=== PATIENT | male | born 1990 | race African-American/Black ===

== ENCOUNTER → 2017-03-21 | Outpatient (CLI) | payer SELFPAY | LOC: M OUTALCOH 13:51 | PROVIDERS: ATTEND Psychiatry & Neurology Psychiatry | DX: F10.20 Alcohol dependence, uncomplicated (principal) ==

== ENCOUNTER 2017-03-30 15:54 | Outpatient (RCR) | payer OTHER, SELFPAY | END 2017-03-31 | LOC: M OUTALCOH 15:54 | PROVIDERS: ATTEND Psychiatry & Neurology Psychiatry | DX: F10.20 Alcohol dependence, uncomplicated (principal); F17.200 Nicotine dependence, unspecified, uncomplicated ==

== ENCOUNTER 2017-04-05 16:00 | Outpatient (RCR) | payer SELFPAY | END 2017-05-01 | LOC: M OUTALCOH 04-06 15:00 | DX: F10.20 Alcohol dependence, uncomplicated (principal); F17.200 Nicotine dependence, unspecified, uncomplicated ==

== ENCOUNTER 2017-05-05 15:45 | Outpatient (RCR) | payer OTHER, SELFPAY | END 2017-06-01 | LOC: M OUTALCOH 15:45 | DX: F10.20 Alcohol dependence, uncomplicated (principal); F17.200 Nicotine dependence, unspecified, uncomplicated ==

== ENCOUNTER 2017-07-21 08:06 | Emergency (ER) | payer OTHER ==
[2017-07-21] MEDS: ONDANSETRON 4MG/2ML VIAL (J2405) IV (09:09)
[2017-07-21] MEDS: MORPHINE 2 MG/ML 1ML SYRINGE (J2270) IV ×4 (09:09→12:32)
[2017-07-21] MEDS: NS 1,000 ML IV (09:09)
[2017-07-21 09:19] LABS: BASO % 0.4 % (0.0-1.0); EOS % 0.1 % (0.0-3.0); HEMATOCRIT 35.8 % (42.0-52.0); HEMOGLOBIN 12.3 g/dl (14.0-18.0); IMMATURE GRANULOCYTE % 0.4 % (0-3.0); LYMPH # 1.5 10^3/uL (1.5-6.5); LYMPH % 14.3 % (24.0-44.0); MEAN CORPUSCULAR HEMOGLOBIN 31.9 pg (27.0-33.0); MEAN CORPUSCULAR HGB CONC 34.4 g/dl (32.0-36.5); MONO # 0.9 10^3/uL (0.0-0.8); MONO % 8.3 % (0.0-5.0); NEUTROPHILS # 8.2 10^3/uL (1.8-7.7); NEUTROPHILS % 76.5 % (36.0-66.0); PLATELET COUNT, AUTOMATED 198 10^3/uL (150-450); RED BLOOD COUNT 3.85 10^6/uL (4.30-6.10); RED CELL DISTRIBUTION WIDTH 13.5 % (11.5-14.5); WHITE BLOOD COUNT 10.8 10^3/uL (4.0-10.0)
[2017-07-21] MEDS: CLINDAMYCIN 900 MG in APPROPRIATE DILUENT 1 EA IV (09:25)
[2017-07-21 09:35] LABS: ALBUMIN 3.2 GM/DL (3.2-5.2); ALBUMIN/GLOBULIN RATIO 0.62 (1.00-1.93); ALKALINE PHOSPHATASE 91 U/L (45-117); ALT/SGPT 37 U/L (12-78); ANION GAP 10 MEQ/L (8-16); AST/SGOT 46 U/L (7-37); BILIRUBIN,DIRECT 0.2 MG/DL (0.0-0.2); BILIRUBIN,TOTAL 0.6 MG/DL (0.2-1.0); BLOOD UREA NITROGEN 6 MG/DL (7-18); CALCIUM LEVEL 8.7 MG/DL (8.5-10.1); CARBON DIOXIDE LEVEL 24 MEQ/L (21-32); CHLORIDE LEVEL 104 MEQ/L (98-107); CREATININE FOR GFR 0.87 MG/DL (0.70-1.30); GLOMERULAR FILTRATION RATE > 60.0 (>60); GLUCOSE, FASTING 79 MG/DL (70-100); POTASSIUM SERUM 4.2 MEQ/L (3.5-5.1); SODIUM LEVEL 138 MEQ/L (136-145); TOTAL PROTEIN 8.4 GM/DL (6.4-8.2)
[2017-07-21] MEDS ORDERED: ISOVUE-370 76% 100ML VIAL (Q9967) As Ordered (09:40)
[2017-07-21 09:55] LABS: LACTIC ACID SEPSIS PROTOCOL 2.3 MMOL/L (0.4-2.0)
[2017-07-21] MEDS: NICOTINE 21MG/24HR 1 EA TRANSDERMAL TD (11:15)
== END 2017-07-21 12:37 | disposition short-term general hospital (02) ==
LOC: M ED 08:06
DX: K12.2 Cellulitis and abscess of mouth (principal); M27.2 Inflammatory conditions of jaws; F17.210 Nicotine dependence, cigarettes, uncomplicated
CPT/HCPCS: J2405

== ENCOUNTER 2022-03-16 15:00 | Emergency (ER) | payer OTHER, SELFPAY ==
[~2022-03-16] VITALS: Ht 172.7 cm; Wt 54.5 kg
[2022-03-16] MEDS ORDERED: KETOROLAC 60MG 2ML VIAL IM ONE (19:40)
[2022-03-16] MEDS ORDERED: LIDOCAINE 5% (LIDODERM) PATCH TD ONE (19:40)
[2022-03-16] MEDS: diazePAM 5MG TABLET PO ONE ×2 (20:03→20:09)
[2022-03-16] MEDS ORDERED: ASPE4PAD TOP (20:58)
[2022-03-16] MEDS ORDERED: NAPR-837 PO (20:58)
[2022-03-16] MEDS ORDERED: METH-1165 PO (20:58)
[2022-03-16 21:11] VITALS: BP 108/80
== END 2022-03-16 21:13 | disposition home or self-care (01) ==
LOC: M ED 15:00
DX: M54.50 Low back pain, unspecified (principal); M54.6 Pain in thoracic spine; F17.200 Nicotine dependence, unspecified, uncomplicated; F10.10 Alcohol abuse, uncomplicated; V49.50XA Passenger injured in collision with unspecified motor vehicles in traffic accident, initial encounter; Z91.013 Allergy to seafood; Z91.018 Allergy to other foods
CPT/HCPCS: 72072; 72110; 96372; 99283; J1885

== ENCOUNTER 2022-04-22 09:04 | Inpatient (IN) | payer MEDICAID, OTHER, SELFPAY ==
[~2022-04-22] VITALS: Ht 172.7 cm; Wt 65.0 kg
[~2022-04-22 09:04] MED LIST: ASPE4PAD TOP; METH-1165 PO; NAPR-837 PO
[2022-04-22 12:00] LABS: BASO % 0.2 % (0.0-1.0); EOS % 0.2 % (0.0-3.0); LYMPH # 0.8 10^3/uL (1.5-5.0); LYMPH % 4.9 % (24.0-44.0); MEAN CORPUSCULAR HEMOGLOBIN 32.7 pg (27.0-33.0); MEAN CORPUSCULAR HGB CONC 34.4 g/dl (32.0-36.5); MEAN CORPUSCULAR VOLUME 95.1 fl (80.0-96.0); MONO % 9.9 % (2.0-8.0); NEUTROPHILS # 13.5 10^3/uL (1.5-8.5); NEUTROPHILS % 82.6 % (36.0-66.0); PLATELET COUNT, AUTOMATED 131 10^3/uL (150-450); RED BLOOD COUNT 2.05 10^6/uL (4.30-6.10); WHITE BLOOD COUNT 16.3 10^3/uL (4.0-10.0)
[2022-04-22 12:35] LABS: RSV AMPLIFICATION NEGATIVE (NEGATIVE)
[2022-04-22 12:45] LABS: HEMATOCRIT 19.5 % (42.0-52.0); HEMOGLOBIN 6.7 g/dl (13.5-17.5); MONO # 1.6 10^3/uL (0.0-0.8)
[2022-04-22] MEDS ORDERED: NS 1,580 ML in IV 1 EA IV ONE (13:00)
[2022-04-22] MEDS ORDERED: cefTRIAXone SOD 2 GM in D5W MINI-BAG PLUS 50 ML IV ONE (13:00)
[2022-04-22 13:01] LABS: ETHYL ALCOHOL (ETHANOL) 0.209 % (0.000-0.010)
[2022-04-22 13:18] LABS: INR 1.88; PROTHROMBIN TIME 21.9 SECONDS (12.5-14.5)
[2022-04-22 13:19] LABS: ACETAMINOPHEN LEVEL < 2.0 UG/ML (10.0-20.0); ALBUMIN 1.8 G/DL (3.2-5.2); ALKALINE PHOSPHATASE 162 U/L (46-116); ALT/SGPT 35 U/L (7.0-40); AST/SGOT 285 U/L (<34); BILIRUBIN,DIRECT 14.9 MG/DL (<0.4); BILIRUBIN,TOTAL 20.1 MG/DL (0.3-1.2); BLOOD UREA NITROGEN 16 MG/DL (9-23); CALCIUM LEVEL 7.9 MG/DL (8.5-10.1); CARBON DIOXIDE LEVEL 29 MMOL/L (20-31); CHLORIDE LEVEL 86 MMOL/L (98-107); CREATININE FOR GFR 1.72 MG/DL (0.70-1.30); GLOMERULAR FILTRATION RATE 59.4 (>60); GLUCOSE, FASTING 98 MG/DL (60-100); LIPASE 52 U/L (12-53); POTASSIUM SERUM 3.4 MMOL/L (3.5-5.1); SALICYLATE LEVEL < 3.0 MG/DL (<30); SODIUM LEVEL 130 MMOL/L (136-145); TOTAL PROTEIN 8.2 G/DL (5.7-8.2)
[2022-04-22 13:19] LABS: PARTIAL THROMBOPLASTIN TIME 56.7 SECONDS (24.8-34.2)
[2022-04-22 13:24] LABS: HEPATITIS B SURFACE ANTIGEN NEGATIVE (NEGATIVE)
[2022-04-22 13:36] LABS: HIV 1&2 SCREEN CENTAUR NEGATIVE (NEGATIVE)
[2022-04-22 13:44] LABS: HEPATITIS B CORE ANTIBODY IGM NEGATIVE (NEGATIVE)
[2022-04-22 13:45] LABS: HEPATITIS C VIRUS ABY INDEX 0.3 INDEX (<0.8)
[2022-04-22] MEDS ORDERED: predniSONE 20 MG TAB PO ONE (15:55)
[2022-04-22] MEDS ORDERED: HOME MED LIST COMPLETE! XX SCH (16:40)
[2022-04-22] MEDS ORDERED: PANTOPRAZOLE 40MG VIAL IV ONE (16:55)
[2022-04-22] MEDS ORDERED: OCTREOTIDE ACETATE 100MCG/ML VIAL **IV ADMINISTRATION ONLY IV ONE (16:55)
[2022-04-22] MEDS ORDERED: ISOVUE-370 76% 100ML VIAL As Ordered ONE (17:14)
[2022-04-22] MEDS ORDERED: LORazepam 2 MG TAB PO PRN (17:15)
[2022-04-22] MEDS: NS 200 ML IV SCH (18:15)
[2022-04-22] MEDS ORDERED: NS 600 ML IV ONE (18:30)
[2022-04-22 19:29] LABS: FERRITIN 1520.5 NG/ML (10.5-307.3)
[2022-04-22 19:30] LABS: FOLATE 3.01 NG/ML (>5.4)
[2022-04-22 20:14] LABS: C REACTIVE PROTEIN QUANTITATIV 3.4 MG/DL (<1.0)
[2022-04-22 20:21] LABS: PERCENT SATURATION 56.1 % (19.7-50.0)
[2022-04-22] MEDS: THIAMINE 100 MG TAB PO SCH (21:00)
[2022-04-22 22:38] VITALS: BP 102/59
[2022-04-22 22:46] LABS: MEAN CORPUSCULAR HEMOGLOBIN 33.5 pg (27.0-33.0); MEAN CORPUSCULAR HGB CONC 34.8 g/dl (32.0-36.5); MEAN CORPUSCULAR VOLUME 96.5 fl (80.0-96.0); PLATELET COUNT, AUTOMATED 131 10^3/uL (150-450); WHITE BLOOD COUNT 13.5 10^3/uL (4.0-10.0)
[2022-04-22 22:52] LABS: HEMATOCRIT 16.4 % (42.0-52.0)
[2022-04-22 22:53] LABS: HEMOGLOBIN 5.7 g/dl (13.5-17.5)
[2022-04-22 22:55] VITALS: BP 102/59
[2022-04-22 23:58] VITALS: BP 101/63
[2022-04-23] VITALS (21 sets, daily range): BP systolic 99–125; BP diastolic 53–83
[2022-04-23] MEDS: PANTOPRAZOLE 40MG VIAL IV SCH ×2 (06:05→17:47)
[2022-04-23] MEDS: NS 200 ML IV SCH (07:35)
[2022-04-23] MEDS: FOLIC ACID 1MG TAB PO SCH ×2 (09:00→09:54)
[2022-04-23] MEDS: K-PHOS NEUTRAL 250MG TABLET (SOD.PHOSPHATE/POT.PHOSPHATE) PO SCH ×5 (09:00→21:01)
[2022-04-23] MEDS: THIAMINE 100 MG TAB PO SCH ×2 (09:00→09:54)
[2022-04-23] MEDS: MULTIVITAMINS/MINERALS THERAP 1 TAB PO SCH ×2 (09:00→09:54)
[2022-04-23 09:01] LABS: BASO % 0.1 % (0.0-1.0); LYMPH # 0.6 10^3/uL (1.5-5.0); LYMPH % 4.1 % (24.0-44.0); MEAN CORPUSCULAR HEMOGLOBIN 32.9 pg (27.0-33.0); MEAN CORPUSCULAR HGB CONC 35.8 g/dl (32.0-36.5); MEAN CORPUSCULAR VOLUME 91.9 fl (80.0-96.0); MONO # 0.9 10^3/uL (0.0-0.8); MONO % 6.5 % (2.0-8.0); NEUTROPHILS # 12.6 10^3/uL (1.5-8.5); NEUTROPHILS % 87.5 % (36.0-66.0); PLATELET COUNT, AUTOMATED 121 10^3/uL (150-450); RED BLOOD COUNT 2.83 10^6/uL (4.30-6.10); WHITE BLOOD COUNT 14.5 10^3/uL (4.0-10.0)
[2022-04-23 09:17] LABS: HEMOGLOBIN 9.3 g/dl (13.5-17.5)
[2022-04-23 09:23] LABS: INR 1.83; PROTHROMBIN TIME 21.5 SECONDS (12.5-14.5)
[2022-04-23 09:27] LABS: BILIRUBIN,DIRECT 14.7 MG/DL (<0.4)
[2022-04-23 09:28] LABS: ALBUMIN 1.5 G/DL (3.2-5.2); ALBUMIN 1.7 G/DL (3.2-5.2); BILIRUBIN,TOTAL 20.4 MG/DL (0.3-1.2); CALCIUM LEVEL 7.2 MG/DL (8.5-10.1); CALCIUM LEVEL 7.4 MG/DL (8.5-10.1); CREATININE FOR GFR 1.71 MG/DL (0.70-1.30); CREATININE FOR GFR 1.75 MG/DL (0.70-1.30); GLOMERULAR FILTRATION RATE 58.2 (>60); GLOMERULAR FILTRATION RATE 59.8 (>60); PHOSPHORUS LEVEL 1.9 MG/DL (2.5-4.9); POTASSIUM SERUM 3.7 MMOL/L (3.5-5.1); POTASSIUM SERUM 3.8 MMOL/L (3.5-5.1); TOTAL PROTEIN 7.7 G/DL (5.7-8.2); TOTAL PROTEIN 7.8 G/DL (5.7-8.2)
[2022-04-23] MEDS: NICOTINE 7 MG/24 HR TRANSDERMAL TD SCH (10:22)
[2022-04-23] MEDS ORDERED: NS 500 ML IV ONE (11:40)
[2022-04-23] MEDS: OXAZEPAM 10MG CAP PO SCH ×3 (12:00→23:46)
[2022-04-23] MEDS: AMPICILLIN SOD/SULBACTAM SOD 3 GM in D5W MINI-BAG PLUS 100 ML IV SCH ×3 (12:48→23:45)
[2022-04-23] MEDS ORDERED: POTASSIUM PHOSPHATE INJ 30 MMOL in D5W 500 ML IV ONE (13:00)
[2022-04-23] MEDS ORDERED: cefTRIAXone SOD 1 GM in D5W MINI-BAG PLUS 50 ML IV SCH (13:00)
[2022-04-23 14:07] LABS: HEMOGLOBIN 9.1 g/dl (13.5-17.5); MEAN CORPUSCULAR VOLUME 91.5 fl (80.0-96.0); PLATELET COUNT, AUTOMATED 129 10^3/uL (150-450); RED BLOOD COUNT 2.84 10^6/uL (4.30-6.10); WHITE BLOOD COUNT 17.2 10^3/uL (4.0-10.0)
[2022-04-23] MEDS: THIAMINE INJection 500 MG in NS 100 ML IV SCH ×2 (16:16→22:11)
[2022-04-24] VITALS (7 sets, daily range): BP systolic 103–126; BP diastolic 60–77
[2022-04-24] MEDS: PANTOPRAZOLE 40MG VIAL IV SCH ×2 (05:19→18:43)
[2022-04-24] MEDS: AMPICILLIN SOD/SULBACTAM SOD 3 GM in D5W MINI-BAG PLUS 100 ML IV SCH ×3 (05:19→18:43)
[2022-04-24] MEDS: OXAZEPAM 10MG CAP PO SCH ×3 (05:20→20:04)
[2022-04-24] MEDS: THIAMINE INJection 500 MG in NS 100 ML IV SCH ×3 (06:06→21:48)
[2022-04-24] MEDS ORDERED: predniSONE 20 MG TAB PO SCH (09:00)
[2022-04-24 09:16] LABS: BASO % 0.2 % (0.0-1.0); EOS % 0.2 % (0.0-3.0); HEMATOCRIT 25.5 % (42.0-52.0); HEMOGLOBIN 9.2 g/dl (13.5-17.5); LYMPH % 5.4 % (24.0-44.0); MEAN CORPUSCULAR HEMOGLOBIN 32.7 pg (27.0-33.0); MEAN CORPUSCULAR HGB CONC 36.1 g/dl (32.0-36.5); MEAN CORPUSCULAR VOLUME 90.7 fl (80.0-96.0); MONO # 1.1 10^3/uL (0.0-0.8); MONO % 6.3 % (2.0-8.0); NEUTROPHILS # 15.2 10^3/uL (1.5-8.5); NEUTROPHILS % 85.5 % (36.0-66.0); PLATELET COUNT, AUTOMATED 136 10^3/uL (150-450); RED BLOOD COUNT 2.81 10^6/uL (4.30-6.10); WHITE BLOOD COUNT 17.7 10^3/uL (4.0-10.0)
[2022-04-24 09:52] LABS: ALBUMIN 1.7 G/DL (3.2-5.2); ALKALINE PHOSPHATASE 129 U/L (46-116); ALT/SGPT 27 U/L (7.0-40); AST/SGOT 153 U/L (<34); BILIRUBIN,DIRECT 15.6 MG/DL (<0.4); BILIRUBIN,TOTAL 21.8 MG/DL (0.3-1.2); BLOOD UREA NITROGEN 17 MG/DL (9-23); CALCIUM LEVEL 6.8 MG/DL (8.5-10.1); CARBON DIOXIDE LEVEL 23 MMOL/L (20-31); CHLORIDE LEVEL 96 MMOL/L (98-107); CREATININE FOR GFR 1.53 MG/DL (0.70-1.30); GLOMERULAR FILTRATION RATE > 60.0 (>60); GLUCOSE, FASTING 81 MG/DL (60-100); PHOSPHORUS LEVEL 1.6 MG/DL (2.5-4.9); SODIUM LEVEL 134 MMOL/L (136-145)
[2022-04-24 10:03] LABS: INR 2.06; PROTHROMBIN TIME 23.6 SECONDS (12.5-14.5)
[2022-04-24] MEDS: MULTIVITAMINS/MINERALS THERAP 1 TAB PO SCH (10:15)
[2022-04-24] MEDS: FOLIC ACID 1 MG in NS 50 ML IV SCH (10:15)
[2022-04-24 10:16] LABS: ERYTHROCYTE SEDIMENTATION RATE 89 mm/hr (0-15)
[2022-04-24] MEDS ORDERED: NS 1,000 ML IV SCH (11:00)
[2022-04-24] MEDS: NICOTINE 7 MG/24 HR TRANSDERMAL TD SCH ×2 (11:20→13:18)
[2022-04-24] MEDS: POTASSIUM CHLORIDE 10% LIQ 20MEQ/15ML UDC PO SCH ×2 (13:09→17:43)
[2022-04-24 14:42] LABS: HEMATOCRIT 28.8 % (42.0-52.0); HEMOGLOBIN 10.2 g/dl (13.5-17.5); MEAN CORPUSCULAR HEMOGLOBIN 32.9 pg (27.0-33.0); MEAN CORPUSCULAR HGB CONC 35.4 g/dl (32.0-36.5); MEAN CORPUSCULAR VOLUME 92.9 fl (80.0-96.0); PLATELET COUNT, AUTOMATED 130 10^3/uL (150-450); WHITE BLOOD COUNT 15.7 10^3/uL (4.0-10.0)
[2022-04-24] MEDS ORDERED: SODIUM PHOSPHATE INJ 20 MMOL in D5W 250 ML IV ONE (15:00)
[2022-04-24] MEDS: PENTOXIFYLLINE 400MG TAB PO SCH ×2 (17:43→20:04)
[2022-04-25] VITALS (8 sets, daily range): BP systolic 101–130; BP diastolic 63–82
[2022-04-25] MEDS: AMPICILLIN SOD/SULBACTAM SOD 3 GM in D5W MINI-BAG PLUS 100 ML IV SCH ×2 (00:06→05:27)
[2022-04-25] MEDS: OXAZEPAM 10MG CAP PO SCH ×3 (03:33→20:00)
[2022-04-25] MEDS: PANTOPRAZOLE 40MG VIAL IV SCH ×2 (05:26→18:20)
[2022-04-25] MEDS: THIAMINE INJection 500 MG in NS 100 ML IV SCH ×3 (06:21→22:39)
[2022-04-25 06:36] LABS: BASO % 0.1 % (0.0-1.0); EOS % 0.3 % (0.0-3.0); HEMATOCRIT 24.2 % (42.0-52.0); HEMOGLOBIN 8.5 g/dl (13.5-17.5); LYMPH # 1.5 10^3/uL (1.5-5.0); LYMPH % 9.5 % (24.0-44.0); MEAN CORPUSCULAR HEMOGLOBIN 32.7 pg (27.0-33.0); MEAN CORPUSCULAR HGB CONC 35.1 g/dl (32.0-36.5); MEAN CORPUSCULAR VOLUME 93.1 fl (80.0-96.0); MONO # 1.4 10^3/uL (0.0-0.8); MONO % 9.4 % (2.0-8.0); NEUTROPHILS # 11.6 10^3/uL (1.5-8.5); NEUTROPHILS % 75.8 % (36.0-66.0); PLATELET COUNT, AUTOMATED 129 10^3/uL (150-450); WHITE BLOOD COUNT 15.3 10^3/uL (4.0-10.0)
[2022-04-25 06:45] LABS: INR 2.34
[2022-04-25 07:14] LABS: ALBUMIN 1.8 G/DL (3.2-5.2); ALKALINE PHOSPHATASE 109 U/L (46-116); ALT/SGPT 23 U/L (7.0-40); AST/SGOT 135 U/L (<34); BILIRUBIN,DIRECT 17.6 MG/DL (<0.4); BILIRUBIN,TOTAL 24.4 MG/DL (0.3-1.2); BLOOD UREA NITROGEN 12 MG/DL (9-23); CALCIUM LEVEL 6.6 MG/DL (8.5-10.1); CARBON DIOXIDE LEVEL 24 MMOL/L (20-31); CHLORIDE LEVEL 99 MMOL/L (98-107); GLOMERULAR FILTRATION RATE > 60.0 (>60); GLUCOSE, FASTING 107 MG/DL (60-100); MAGNESIUM LEVEL 0.9 MG/DL (1.8-2.4); PHOSPHORUS LEVEL 1.3 MG/DL (2.5-4.9); POTASSIUM SERUM 2.9 MMOL/L (3.5-5.1); SODIUM LEVEL 135 MMOL/L (136-145); TOTAL PROTEIN 6.9 G/DL (5.7-8.2)
[2022-04-25] MEDS ORDERED: VANCOMYCIN HCL 750 MG, VIAL MATE ADAPTER 1 EACH in D5W 250 ML IV ONE ×2 (08:00→09:00)
[2022-04-25] MEDS: MAG SULF 1GM/100ML (MAG RUN) 1 GM in IV 1 EA IV SCH ×4 (08:08→12:42)
[2022-04-25] MEDS: POTASSIUM CHLORIDE 10MEQ SR TABLET PO SCH ×2 (08:54→12:42)
[2022-04-25] MEDS: PENTOXIFYLLINE 400MG TAB PO SCH ×3 (08:54→22:38)
[2022-04-25] MEDS: MULTIVITAMINS/MINERALS THERAP 1 TAB PO SCH (08:55)
[2022-04-25] MEDS ORDERED: MAGNESIUM OXIDE 400MG TAB (MAG-OX) PO SCH (09:00)
[2022-04-25] MEDS: NICOTINE 7 MG/24 HR TRANSDERMAL TD SCH (09:00)
[2022-04-25] MEDS ORDERED: CEFEPIME HCL 1 GM in D5W MINI-BAG PLUS 50 ML IV SCH (11:00)
[2022-04-25] MEDS ORDERED: ISOVUE-370 76% 100ML VIAL As Ordered ONE (11:20)
[2022-04-25] MEDS ORDERED: POTASSIUM PHOSPHATE INJ 20 MMOL in D5W 250 ML IV ONE (12:00)
[2022-04-25] MEDS: FOLIC ACID 1 MG in NS 50 ML IV SCH (12:42)
[2022-04-25 16:39] LABS: MAGNESIUM LEVEL 1.9 MG/DL (1.8-2.4)
[2022-04-25 16:42] LABS: BLOOD UREA NITROGEN 11 MG/DL (9-23); CALCIUM LEVEL 6.8 MG/DL (8.5-10.1); CARBON DIOXIDE LEVEL 20 MMOL/L (20-31); CHLORIDE LEVEL 99 MMOL/L (98-107); CREATININE FOR GFR 1.23 MG/DL (0.70-1.30); GLOMERULAR FILTRATION RATE > 60.0 (>60); GLUCOSE, FASTING 100 MG/DL (60-100); POTASSIUM SERUM 3.6 MMOL/L (3.5-5.1); SODIUM LEVEL 133 MMOL/L (136-145)
[2022-04-25] MEDS ORDERED: MAGNESIUM OXIDE 400MG TAB (MAG-OX) PO ONE (17:55)
[2022-04-25] MEDS ORDERED: POTASSIUM CHLORIDE 10MEQ SR TABLET PO ONE (18:00)
[2022-04-25] MEDS: PIPERACILLIN/TAZOBACTAM SOD 3.375 GM in D5W MINI-BAG PLUS 50 ML IV SCH ×2 (18:21→22:39)
[2022-04-25] MEDS: VANCOMYCIN HCL 1,000 MG, VIAL MATE ADAPTER 1 EACH in NS 250 ML IV SCH (18:21)
[2022-04-25] MEDS: K-PHOS ORIGINAL (POT.ACID PHOSPHATE) 500MG TAB PO SCH (22:38)
[2022-04-26] VITALS (8 sets, daily range): BP systolic 91–115; BP diastolic 55–79
[2022-04-26] MEDS: OXAZEPAM 10MG CAP PO SCH ×3 (03:58→21:15)
[2022-04-26] MEDS: PIPERACILLIN/TAZOBACTAM SOD 3.375 GM in D5W MINI-BAG PLUS 50 ML IV SCH ×2 (03:58→09:55)
[2022-04-26 05:33] LABS: HEMATOCRIT 25.5 % (42.0-52.0); MEAN CORPUSCULAR HEMOGLOBIN 33.3 pg (27.0-33.0); MEAN CORPUSCULAR HGB CONC 35.3 g/dl (32.0-36.5); MEAN CORPUSCULAR VOLUME 94.4 fl (80.0-96.0); PLATELET COUNT, AUTOMATED 124 10^3/uL (150-450); WHITE BLOOD COUNT 14.6 10^3/uL (4.0-10.0)
[2022-04-26 05:44] LABS: INR 2.38; PROTHROMBIN TIME 26.4 SECONDS (12.5-14.5)
[2022-04-26] MEDS: VANCOMYCIN HCL 1,000 MG, VIAL MATE ADAPTER 1 EACH in NS 250 ML IV SCH (05:46)
[2022-04-26] MEDS: PANTOPRAZOLE 40MG VIAL IV SCH ×2 (05:47→17:17)
[2022-04-26] MEDS: THIAMINE INJection 500 MG in NS 100 ML IV SCH (05:47)
[2022-04-26 05:54] LABS: ERYTHROCYTE SEDIMENTATION RATE 77 mm/hr (0-15)
[2022-04-26 05:55] LABS: MAGNESIUM LEVEL 1.6 MG/DL (1.8-2.4)
[2022-04-26 06:29] LABS: ALBUMIN 1.7 G/DL (3.2-5.2); ALKALINE PHOSPHATASE 108 U/L (46-116); ALT/SGPT 23 U/L (7.0-40); AST/SGOT 125 U/L (<34); BILIRUBIN,DIRECT 18.4 MG/DL (<0.4); BLOOD UREA NITROGEN 9 MG/DL (9-23); CALCIUM LEVEL 6.8 MG/DL (8.5-10.1); CARBON DIOXIDE LEVEL 19 MMOL/L (20-31); CHLORIDE LEVEL 101 MMOL/L (98-107); CREATININE FOR GFR 1.29 MG/DL (0.70-1.30); GLOMERULAR FILTRATION RATE > 60.0 (>60); GLUCOSE, FASTING 108 MG/DL (60-100); PHOSPHORUS LEVEL 1.7 MG/DL (2.5-4.9); POTASSIUM SERUM 3.7 MMOL/L (3.5-5.1); SODIUM LEVEL 133 MMOL/L (136-145); TOTAL PROTEIN 6.8 G/DL (5.7-8.2)
[2022-04-26 06:56] LABS: BILIRUBIN,TOTAL 25.4 MG/DL (0.3-1.2)
[2022-04-26 06:57] LABS: VANCOMYCIN LEVEL TROUGH 25.6 UG/ML (10.0-20.0)
[2022-04-26 07:00] LABS: ANISOCYTOSIS 3+; LYMPHOCYTES 8 % (16-44); METAMYELOCYTES 3 % (0-0); MONOCYTES 8 % (0-5); NEUTROPHILS 78 % (28-66); PLATELET ESTIMATE DECREASED (NORMAL)
[2022-04-26] MEDS: PENTOXIFYLLINE 400MG TAB PO SCH ×3 (08:30→21:14)
[2022-04-26] MEDS: MULTIVITAMINS/MINERALS THERAP 1 TAB PO SCH (08:30)
[2022-04-26] MEDS: K-PHOS ORIGINAL (POT.ACID PHOSPHATE) 500MG TAB PO SCH (08:30)
[2022-04-26] MEDS: NICOTINE 7 MG/24 HR TRANSDERMAL TD SCH (08:31)
[2022-04-26] MEDS: MAG SULF 1GM/100ML (MAG RUN) 1 GM in IV 1 EA IV SCH ×2 (09:56→10:57)
[2022-04-26] MEDS ORDERED: POTASSIUM PHOSPHATE INJ 20 MMOL in D5W 250 ML IV ONE (12:00)
[2022-04-26] MEDS: LevoFLOXacin 750 MG TABLET PO SCH (17:16)
[2022-04-27] VITALS (7 sets, daily range): BP systolic 100–111; BP diastolic 63–76
[2022-04-27] MEDS: PANTOPRAZOLE 40MG VIAL IV SCH ×2 (05:06→18:19)
[2022-04-27] MEDS: OXAZEPAM 10MG CAP PO SCH (05:06)
[2022-04-27 05:30] LABS: BASO % 0.3 % (0.0-1.0); EOS # 0.1 10^3/uL (0.0-0.5); EOS % 0.8 % (0.0-3.0); HEMATOCRIT 23.6 % (42.0-52.0); HEMOGLOBIN 8.2 g/dl (13.5-17.5); LYMPH % 6.7 % (24.0-44.0); MEAN CORPUSCULAR HEMOGLOBIN 32.5 pg (27.0-33.0); MEAN CORPUSCULAR HGB CONC 34.7 g/dl (32.0-36.5); MEAN CORPUSCULAR VOLUME 93.7 fl (80.0-96.0); NEUTROPHILS % 76.2 % (36.0-66.0); PLATELET COUNT, AUTOMATED 118 10^3/uL (150-450); RED BLOOD COUNT 2.52 10^6/uL (4.30-6.10); WHITE BLOOD COUNT 14.4 10^3/uL (4.0-10.0)
[2022-04-27 05:39] LABS: INR 2.47; PROTHROMBIN TIME 27.2 SECONDS (12.5-14.5)
[2022-04-27 05:49] LABS: MONO # 1.7 10^3/uL (0.0-0.8)
[2022-04-27 05:55] LABS: MAGNESIUM LEVEL 1.7 MG/DL (1.8-2.4)
[2022-04-27 06:14] LABS: ALBUMIN 1.5 G/DL (3.2-5.2); ALKALINE PHOSPHATASE 99 U/L (46-116); ALT/SGPT 21 U/L (7.0-40); AST/SGOT 99 U/L (<34); BILIRUBIN,DIRECT 17.9 MG/DL (<0.4); BILIRUBIN,TOTAL 24.5 MG/DL (0.3-1.2); BLOOD UREA NITROGEN 8 MG/DL (9-23); CALCIUM LEVEL 7.2 MG/DL (8.5-10.1); CARBON DIOXIDE LEVEL 23 MMOL/L (20-31); CHLORIDE LEVEL 100 MMOL/L (98-107); CREATININE FOR GFR 1.31 MG/DL (0.70-1.30); GLOMERULAR FILTRATION RATE > 60.0 (>60); GLUCOSE, FASTING 83 MG/DL (60-100); PHOSPHORUS LEVEL 1.9 MG/DL (2.5-4.9); POTASSIUM SERUM 3.4 MMOL/L (3.5-5.1); SODIUM LEVEL 132 MMOL/L (136-145); TOTAL PROTEIN 6.4 G/DL (5.7-8.2)
[2022-04-27] MEDS ORDERED: POTASSIUM CHLORIDE 10MEQ SR TABLET PO ONE (07:00)
[2022-04-27] MEDS: THIAMINE 100 MG TAB PO SCH (09:00)
[2022-04-27] MEDS: FOLIC ACID 1MG TAB PO SCH (09:00)
[2022-04-27] MEDS: MULTIVITAMINS/MINERALS THERAP 1 TAB PO SCH (09:00)
[2022-04-27] MEDS: MAG SULF 1GM/100ML (MAG RUN) 1 GM in IV 1 EA IV SCH ×2 (09:53→11:12)
[2022-04-27] MEDS: PENTOXIFYLLINE 400MG TAB PO SCH ×3 (09:53→21:00)
[2022-04-27] MEDS ORDERED: POTASSIUM PHOSPHATE INJ 20 MMOL in D5W 250 ML IV ONE (12:00)
[2022-04-27] MEDS: LevoFLOXacin 750 MG TABLET PO SCH (18:19)
[2022-04-28] VITALS: BP 100/58
[2022-04-28 04:00] VITALS: BP 109/66
[2022-04-28] MEDS: PANTOPRAZOLE 40MG VIAL IV SCH ×2 (06:29→18:16)
[2022-04-28 07:52] LABS: BASO # 0.1 10^3/uL (0.0-0.2); BASO % 0.3 % (0.0-1.0); EOS # 0.1 10^3/uL (0.0-0.5); EOS % 0.5 % (0.0-3.0); HEMATOCRIT 24.5 % (42.0-52.0); HEMOGLOBIN 8.7 g/dl (13.5-17.5); LYMPH # 0.9 10^3/uL (1.5-5.0); LYMPH % 6.1 % (24.0-44.0); MEAN CORPUSCULAR HEMOGLOBIN 33.9 pg (27.0-33.0); MEAN CORPUSCULAR HGB CONC 35.5 g/dl (32.0-36.5); MEAN CORPUSCULAR VOLUME 95.3 fl (80.0-96.0); MONO % 10.7 % (2.0-8.0); NEUTROPHILS # 12.1 10^3/uL (1.5-8.5); NEUTROPHILS % 79.3 % (36.0-66.0); PLATELET COUNT, AUTOMATED 118 10^3/uL (150-450); RED BLOOD COUNT 2.57 10^6/uL (4.30-6.10); WHITE BLOOD COUNT 15.2 10^3/uL (4.0-10.0)
[2022-04-28 08:00] VITALS: BP 125/65
[2022-04-28] MEDS: MAG SULF 1GM/100ML (MAG RUN) 1 GM in IV 1 EA IV SCH ×2 (08:00→09:00)
[2022-04-28 08:05] LABS: INR 2.32; PROTHROMBIN TIME 25.9 SECONDS (12.5-14.5)
[2022-04-28 08:17] LABS: MONO # 1.6 10^3/uL (0.0-0.8)
[2022-04-28 08:21] LABS: ERYTHROCYTE SEDIMENTATION RATE 82 mm/hr (0-15)
[2022-04-28 08:46] LABS: ALBUMIN 1.6 G/DL (3.2-5.2); ALKALINE PHOSPHATASE 117 U/L (46-116); ALT/SGPT 22 U/L (7.0-40); AST/SGOT 92 U/L (<34); BILIRUBIN,DIRECT 19.4 MG/DL (<0.4); BLOOD UREA NITROGEN 12 MG/DL (9-23); CALCIUM LEVEL 7.8 MG/DL (8.5-10.1); CARBON DIOXIDE LEVEL 21 MMOL/L (20-31); CHLORIDE LEVEL 101 MMOL/L (98-107); CREATININE FOR GFR 1.68 MG/DL (0.70-1.30); GLOMERULAR FILTRATION RATE > 60.0 (>60); GLUCOSE, FASTING 95 MG/DL (60-100); PHOSPHORUS LEVEL 2.6 MG/DL (2.5-4.9); POTASSIUM SERUM 4.1 MMOL/L (3.5-5.1); SODIUM LEVEL 132 MMOL/L (136-145); TOTAL PROTEIN 6.7 G/DL (5.7-8.2)
[2022-04-28 09:02] LABS: BILIRUBIN,TOTAL 26.9 MG/DL (0.3-1.2)
[2022-04-28] MEDS ORDERED: POTASSIUM PHOSPHATE INJ 30 MMOL in D5W 500 ML IV ONE (10:00)
[2022-04-28] MEDS: PENTOXIFYLLINE 400MG TAB PO SCH ×3 (10:17→21:21)
[2022-04-28 11:02] VITALS: BP 113/75
[2022-04-28 12:55] VITALS: BP 105/70
[2022-04-28] MEDS: MULTIVITAMINS/MINERALS THERAP 1 TAB PO SCH (15:05)
[2022-04-28] MEDS: FOLIC ACID 1MG TAB PO SCH (15:05)
[2022-04-28] MEDS: THIAMINE 100 MG TAB PO SCH (15:05)
[2022-04-28 15:50] LABS: RSV AMPLIFICATION NEGATIVE (NEGATIVE)
[2022-04-28] MEDS ORDERED: PENT400T47 PO (18:02)
[2022-04-28] MEDS ORDERED: VITMTA PO (18:02)
[2022-04-28] MEDS ORDERED: PANT40IN4 IV (18:02)
[2022-04-28] MEDS ORDERED: LEVO1TAB40 PO (18:02)
[2022-04-28] MEDS ORDERED: LACT20EL PO (18:02)
[2022-04-28] MEDS ORDERED: ATIV2TAB PO (18:02)
[2022-04-28] MEDS ORDERED: THIA100TA PO (18:02)
[2022-04-28] MEDS ORDERED: FOLI1TAB11 PO (18:02)
[2022-04-28] MEDS: LevoFLOXacin 750 MG TABLET PO SCH (18:16)
[2022-04-28 20:00] VITALS: BP 121/62
[2022-04-28] MEDS: LACTULOSE 20GM/30ML SYRUP UDC PO SCH (21:00)
[2022-04-29] VITALS (8 sets, daily range): BP systolic 98–113; BP diastolic 60–76
[2022-04-29] MEDS: PANTOPRAZOLE 40MG VIAL IV SCH ×2 (05:16→17:15)
[2022-04-29 05:20] LABS: BASO % 0.2 % (0.0-1.0); EOS # 0.1 10^3/uL (0.0-0.5); EOS % 0.6 % (0.0-3.0); HEMATOCRIT 24.5 % (42.0-52.0); HEMOGLOBIN 8.4 g/dl (13.5-17.5); LYMPH # 0.9 10^3/uL (1.5-5.0); LYMPH % 6.1 % (24.0-44.0); MEAN CORPUSCULAR HEMOGLOBIN 32.8 pg (27.0-33.0); MEAN CORPUSCULAR HGB CONC 34.3 g/dl (32.0-36.5); MEAN CORPUSCULAR VOLUME 95.7 fl (80.0-96.0); MONO % 12.8 % (2.0-8.0); NEUTROPHILS # 11.2 10^3/uL (1.5-8.5); NEUTROPHILS % 77.4 % (36.0-66.0); PLATELET COUNT, AUTOMATED 113 10^3/uL (150-450); RED BLOOD COUNT 2.56 10^6/uL (4.30-6.10); WHITE BLOOD COUNT 14.4 10^3/uL (4.0-10.0)
[2022-04-29 05:21] LABS: MONO # 1.8 10^3/uL (0.0-0.8)
[2022-04-29 05:34] LABS: INR 2.2; PROTHROMBIN TIME 24.8 SECONDS (12.5-14.5)
[2022-04-29 05:39] LABS: MAGNESIUM LEVEL 1.8 MG/DL (1.8-2.4)
[2022-04-29 06:07] LABS: ALBUMIN 1.7 G/DL (3.2-5.2); CALCIUM LEVEL 8.5 MG/DL (8.5-10.1); CREATININE FOR GFR 2.27 MG/DL (0.70-1.30); GLOMERULAR FILTRATION RATE 43.1 (>60); PHOSPHORUS LEVEL 2.4 MG/DL (2.5-4.9); POTASSIUM SERUM 4.1 MMOL/L (3.5-5.1); TOTAL PROTEIN 6.7 G/DL (5.7-8.2)
[2022-04-29] MEDS: PENTOXIFYLLINE 400MG TAB PO SCH ×3 (08:20→20:21)
[2022-04-29] MEDS: MULTIVITAMINS/MINERALS THERAP 1 TAB PO SCH (08:20)
[2022-04-29] MEDS: FOLIC ACID 1MG TAB PO SCH (08:20)
[2022-04-29] MEDS: THIAMINE 100 MG TAB PO SCH (08:20)
[2022-04-29] MEDS: LACTULOSE 20GM/30ML SYRUP UDC PO SCH ×2 (08:21→20:21)
[2022-04-29] MEDS: NS 1,000 ML IV SCH ×2 (11:09→20:21)
[2022-04-29 11:46] LABS: BILIRUBIN,DIRECT 19.6 MG/DL (<0.4)
[2022-04-29 11:47] LABS: BILIRUBIN,TOTAL 26.8 MG/DL (0.3-1.2)
[2022-04-29] MEDS: MIDODRINE 5 MG TAB PO SCH ×2 (14:57→21:08)
[2022-04-29] MEDS: OCTREOTIDE ACETATE 100MCG/ML VIAL **SC ADMINISTRATION ONLY SC SCH ×2 (14:57→21:09)
[2022-04-29] MEDS: LevoFLOXacin 750 MG TABLET PO SCH (17:15)
[2022-04-30] VITALS (16 sets, daily range): BP systolic 78–120; BP diastolic 44–97
[2022-04-30 05:14] LABS: BASO % 0.2 % (0.0-1.0); EOS # 0.1 10^3/uL (0.0-0.5); EOS % 0.5 % (0.0-3.0); HEMATOCRIT 24.1 % (42.0-52.0); HEMOGLOBIN 8.1 g/dl (13.5-17.5); LYMPH % 8.2 % (24.0-44.0); MEAN CORPUSCULAR HEMOGLOBIN 32.5 pg (27.0-33.0); MEAN CORPUSCULAR HGB CONC 33.6 g/dl (32.0-36.5); MEAN CORPUSCULAR VOLUME 96.8 fl (80.0-96.0); MONO % 13.5 % (2.0-8.0); NEUTROPHILS # 9.2 10^3/uL (1.5-8.5); NEUTROPHILS % 75.6 % (36.0-66.0); PLATELET COUNT, AUTOMATED 122 10^3/uL (150-450); RED BLOOD COUNT 2.49 10^6/uL (4.30-6.10); WHITE BLOOD COUNT 12.2 10^3/uL (4.0-10.0)
[2022-04-30 05:28] LABS: INR 2.21; PROTHROMBIN TIME 24.9 SECONDS (12.5-14.5)
[2022-04-30 05:37] LABS: ERYTHROCYTE SEDIMENTATION RATE 62 mm/hr (0-15)
[2022-04-30 05:43] LABS: MAGNESIUM LEVEL 1.6 MG/DL (1.8-2.4)
[2022-04-30 05:44] LABS: C REACTIVE PROTEIN QUANTITATIV 3.2 MG/DL (<1.0)
[2022-04-30 05:47] LABS: MONO # 1.7 10^3/uL (0.0-0.8)
[2022-04-30] MEDS ORDERED: OCTREOTIDE ACETATE 100MCG/ML VIAL **IV ADMINISTRATION ONLY IV SCH (06:00)
[2022-04-30] MEDS: NS 1,000 ML IV SCH (06:12)
[2022-04-30] MEDS: PANTOPRAZOLE 40MG VIAL IV SCH (06:13)
[2022-04-30] MEDS: MIDODRINE 5 MG TAB PO SCH (06:13)
[2022-04-30 06:43] LABS: ALBUMIN 2.3 G/DL (3.2-5.2); BILIRUBIN,DIRECT 18.8 MG/DL (<0.4); CALCIUM LEVEL 8.2 MG/DL (8.5-10.1); CREATININE FOR GFR 2.6 MG/DL (0.70-1.30); GLOMERULAR FILTRATION RATE 36.9 (>60); PHOSPHORUS LEVEL 3.8 MG/DL (2.5-4.9); POTASSIUM SERUM 4.6 MMOL/L (3.5-5.1); TOTAL PROTEIN 6.5 G/DL (5.7-8.2)
[2022-04-30 06:44] LABS: BILIRUBIN,TOTAL 26.1 MG/DL (0.3-1.2)
[2022-04-30] MEDS ORDERED: NS 500 ML IV ONE (07:50)
[2022-04-30] MEDS: MULTIVITAMINS/MINERALS THERAP 1 TAB PO SCH (09:00)
[2022-04-30] MEDS: THIAMINE 100 MG TAB PO SCH (09:00)
[2022-04-30] MEDS: FOLIC ACID 1MG TAB PO SCH (09:00)
[2022-04-30] MEDS: LACTULOSE 20GM/30ML SYRUP UDC PO SCH (09:00)
[2022-04-30] MEDS: PENTOXIFYLLINE 400MG TAB PO SCH (09:00)
[2022-04-30] MEDS ORDERED: cefTRIAXone SOD 2 GM in D5W MINI-BAG PLUS 50 ML IV SCH (11:00)
== END 2022-04-30 12:29 | disposition short-term general hospital (02) | DRG 280 ==
LOC: M ED 09:09 → M ED INP 16:52 → ENRESERV 04-23 09:20 → M PCU 04-23 10:37
PROVIDERS: ADMIT Student in an Organized Health Care Education/Training Program; ATTEND Student in an Organized Health Care Education/Training Program
PROC: 30233N1 Transfusion of Nonautologous Red Blood Cells into Peripheral Vein, Percutaneous Approach (ICD-10-PCS; principal; 2022-04-22)
DX: K70.11 Alcoholic hepatitis with ascites (principal); N17.9 Acute kidney failure, unspecified; D68.4 Acquired coagulation factor deficiency; E87.20 Acidosis, unspecified; E87.1 Hypo-osmolality and hyponatremia; D62 Acute posthemorrhagic anemia; D69.6 Thrombocytopenia, unspecified; E83.42 Hypomagnesemia; E83.39 Other disorders of phosphorus metabolism; F17.200 Nicotine dependence, unspecified, uncomplicated; F10.20 Alcohol dependence, uncomplicated; E87.6 Hypokalemia; Z91.013 Allergy to seafood; Z91.018 Allergy to other foods; Z79.899 Other long term (current) drug therapy; D72.829 Elevated white blood cell count, unspecified; K76.0 Fatty (change of) liver, not elsewhere classified; K70.31 Alcoholic cirrhosis of liver with ascites